=== PATIENT | male | born 1975 | race American Indian/Alaskan Native ===

== ENCOUNTER 2023-02-28 10:06 | Emergency (ER) | payer BC ==
[~2023-02-28] VITALS: Ht 170.2 cm; Wt 72.6 kg
[2023-02-28 10:23] VITALS: BP 152/80
[2023-02-28 12:40] LABS: Source, Urine Clean Catch
[2023-02-28 12:54] LABS: Appearance, Urine Clear (Clear); Blood, Urine 2+ (Neg); Color, Urine Yellow (P-Yellow); Glucose Qualitative, Urine Neg (Neg); Ketones, Urine 3+ (Neg); Leukocyte Esterase, Urine 1+ (Neg); Nitrite, Urine Neg (Neg); Protein, Urine 2+ (Neg); Specific Gravity, Urine 1.025 (1.003-1.022); Urobilinogen, Urine 1+ (Normal)
[2023-02-28 13:03] LABS: Bilirubin, Urine 1+ (Neg)
[2023-02-28 13:04] LABS: Bacteria Not Seen /hpf; Squamous Epithelial Cells Rare /hpf (Few); White Blood Cells, Urine 0-2 /hpf (0-5)
[2023-02-28 14:20] LABS: Calcium, Ionized (POC) 1.22 mmol/L (1.10-1.46); Chloride (POC) 101 mmol/L (98-108); Creatinine (POC) 1.4 mg/dL (0.8-1.3); Glucose (ISTAT POC) 80 mg/dL (70-99); Hemoglobin (POC) 17.3 g/dL (13.5-17.5); Sodium (POC) 139 mmol/L (135-148); Total CO2 (POC) 26 mmol/L (21-32)
[2023-02-28 15:01] LABS: Bun/Creatinine Ratio 19.2 (12.0-20.0); Calcium, Blood 9.1 mg/dL (8.5-10.1); Creatinine, Blood 1.3 mg/dL (0.60-1.20)
[2023-02-28] MEDS ORDERED: BENZ100A PO (16:13)
[2023-02-28] MEDS ORDERED: ONDA4ODT MM (16:13)
== END 2023-02-28 16:22 | disposition home or self-care (01) ==
LOC: ER 10:06
PROVIDERS: Student in an Organized Health Care Education/Training Program
DX: U07.1 COVID-19 (principal); E86.0 Dehydration; N17.9 Acute kidney failure, unspecified; J06.9 Acute upper respiratory infection, unspecified; R79.89 Other specified abnormal findings of blood chemistry
CPT/HCPCS: 36415; 80047; 80048; 81001; 85014; 87086; 96360; 99283-25; A9270; J7030